=== PATIENT | female | born 1995 | race Caucasian/White ===

== ENCOUNTER 2019-10-15 00:48 | Emergency (ER) | payer OTHER ==
[~2019-10-15] VITALS: Ht 160 cm; Wt 55.5 kg
[2019-10-15 00:52] VITALS: BP 97/52; TEMP 97.8
[2019-10-15] MEDS ORDERED: FOLIC ACID0.4 MG PO (01:08)
[2019-10-15] MEDS ORDERED: KEPPRA250 MG PO (01:08)
[2019-10-15] MEDS ORDERED: LIALDA 1.2 GM1.2 GM PO (01:08)
[2019-10-15 01:50] LABS: HEMOGLOBIN 11.5 g/dl (12.5-16.0); MEAN CELL VOLUME 90 fl (80.0-100.0); MEAN CORPUSCULAR HEMOGLOBIN 29 pg (27.0-31.0); MEAN CORPUSCULAR HGB CONC 32 g/dl (33.0-37.0); MEAN PLATELET VOLUME 8.7 fl (7.4-10.4); PLATELET COUNT 383 K/mm3 (130-400); RED BLOOD COUNT 3.99 M/mm3 (4.10-5.30); REDCELL DISTRIBUTION WIDTH-CV 13.7 % (11.5-14.5)
[2019-10-15 02:04] LABS: ALBUMIN 3.3 gm/dL (3.5-5.0); BILIRUBIN,TOTAL 0.5 mg/dL (0.0-1.0); CALCIUM 8.5 mg/dL (8.4-10.2); CREATININE, serum 0.85 (0.52-1.25); TOTAL PROTEIN 6.9 gm/dL (6.4-8.2)
[2019-10-15 02:20] LABS: PROLACTIN 16.7 ng/mL (3.0-18.6)
[2019-10-15] MEDS ORDERED: K-DUR 10 MEQ T10 MEQ PO (02:42)
[2019-10-15] MEDS ORDERED: IMODIUM 2MG CAPS2 MG PO (02:42)
[2019-10-15 02:47] LABS: BAND 52 % (0-10); EOSINOPHIL 3 % (0-4); NEUTROPHILS 13 % (42.0-75.2); PLATELET ESTIMATE NORMAL (NORMAL)
[2019-10-15 02:48] LABS: LYMPHOCYTE 17 % (20.0-51.0)
[2019-10-15 03:16] LABS: MUCOUS Present /lpf; PH 5 (5-8); SQUAMOUS EPITHELIAL 0-2 /hpf; URINE APPEARANCE Hazy; URINE BACTERIA None Seen /hpf; URINE BILIRUBIN Positive (NEGATIVE); URINE BLOOD Negative (NEGATIVE); URINE COLOR Amber; URINE GLUCOSE Negative (NEGATIVE); URINE KETONE Negative (NEGATIVE); URINE LEUKOCYTE ESTERASE Negative (NEGATIVE); URINE NITRATE Negative (NEGATIVE); URINE PROTEIN(semi-quant) 1+ (NEGATIVE); URINE RBC 0-2 /hpf; URINE UROBILINOGEN Negative (NEGATIVE)
[2019-10-15 03:17] LABS: COLLECTION METHOD CATHETER
[2019-10-15] MEDS ORDERED: CIPRO 500MG TA500 MG PO (03:27)
[2019-10-15 03:43] VITALS: PULSE 95
== END 2019-10-15 03:49 | disposition home or self-care (01) ==
LOC: COL.ER 00:48
PROVIDERS: Emergency Medicine
DX: G40.909 Epilepsy, unspecified, not intractable, without status epilepticus (principal); K52.9 Noninfective gastroenteritis and colitis, unspecified; N39.0 Urinary tract infection, site not specified; R55 Syncope and collapse; E87.6 Hypokalemia; E86.9 Volume depletion, unspecified
CPT/HCPCS: J7120

== ENCOUNTER 2024-08-16 04:17 | Emergency (ER) | payer OTHER ==
[~2024-08-16] VITALS: Ht 160 cm; Wt 58.2 kg
[~2024-08-16 04:17] MED LIST: CIPRO 500MG TA500 MG PO; FOLIC ACID0.4 MG PO; IMODIUM 2MG CAPS2 MG PO; K-DUR 10 MEQ T10 MEQ PO; KEPPRA250 MG PO; LIALDA 1.2 GM1.2 GM PO
[2024-08-16 04:18] VITALS: TEMP 98.1
[2024-08-16] MEDS ORDERED: levETIRAcetam 1,000 MG in Syringe 1 EACH IV ONE (04:30)
[2024-08-16] MEDS ORDERED: Ketorolac 15 MG/ML VIAL IV ONE (04:30)
[2024-08-16 04:41] LABS: BASO % 0.4 % (0.0-2.0); EOS % 0.1 % (0.0-4.0); GRAN # 4.6 K/mm3 (1.4-6.5); GRAN % 48.9 % (42.2-75.2); HEMATOCRIT 38.8 % (37.0-47.0); HEMOGLOBIN 12.7 g/dl (12.5-16.0); LYMPH # 4.2 K/mm3 (1.2-3.4); LYMPH % 44.6 % (20.0-51.0); MEAN CELL VOLUME 92 fl (80.0-100.0); MEAN CORPUSCULAR HEMOGLOBIN 30 pg (27-31); MEAN CORPUSCULAR HGB CONC 33 g/dl (33.0-37.0); MEAN PLATELET VOLUME 9.2 fl (7.4-10.4); MONO # 0.5 K/mm3 (0.1-0.6); MONO % 5.7 % (1.7-9.3); PLATELET COUNT 249 K/mm3 (130-400); RED BLOOD COUNT 4.22 M/mm3 (4.10-5.30)
[2024-08-16 04:55] LABS: TROPONIN-I < 0.010 ng/mL (0.00-0.033)
[2024-08-16 05:06] LABS: ALANINE AMINOTRANSFERASE 49 U/L (0-55); ALBUMIN 3.6 g/dL (3.5-5.0); ALKALINE PHOSPHATASE 215 U/L (40-150); ANION GAP 12 mmol/L (7-16); AST,SGOT 113 U/L (5-34); BILIRUBIN,TOTAL 0.3 mg/dL (0.2-1.2); BLOOD UREA NITROGEN 14 mg/dL (7-19); CALCIUM 9.1 mg/dL (8.4-10.2); CHLORIDE 104 mEq/L (98-107); CREATININE, serum 0.98 mg/dL (0.57-1.11); GLUCOSE 132 mg/dL (70-99); POTASSIUM 3.6 mEq/L (3.5-4.5); SODIUM 140 mEq/L (136-145); TOTAL PROTEIN 6.9 g/dl (6.2-8.1)
[2024-08-16 05:46] LABS: COLLECTION METHOD CLEAN CATCH
[2024-08-16 05:54] LABS: URINE APPEARANCE CLEAR (CLEAR/HAZY); URINE BLOOD 3+ (NEGATIVE); URINE COLOR Dark Yellow (YELLOW); URINE GLUCOSE NEGATIVE (NEGATIVE); URINE KETONE NEGATIVE (NEGATIVE); URINE NITRATE NEGATIVE (NEGATIVE); URINE PROTEIN(semi-quant) TRACE (NEGATIVE)
[2024-08-16] MEDS ORDERED: MACROBID 1100 MG/CAP PO (06:03)
[2024-08-16 06:16] VITALS: BP 103/62; PULSE 62
== END 2024-08-16 06:21 | disposition home or self-care (01) ==
LOC: COL.ER 04:17
PROVIDERS: Emergency Medicine
DX: G40.909 Epilepsy, unspecified, not intractable, without status epilepticus (principal); N39.0 Urinary tract infection, site not specified; R74.01 Elevation of levels of liver transaminase levels; Z79.899 Other long term (current) drug therapy
CPT/HCPCS: J1885; J1953